=== PATIENT | female | born 1965 | race Caucasian/White ===

== ENCOUNTER → 2017-07-30 | Outpatient (CLI) | payer OTHER ==
[~2017-07-30] VITALS: Ht 167.6 cm; Wt 95.3 kg
[~2017-07-30] MED LIST: VITAMIN B-12500 MCG PO; VITAMIN D1000 UNI1 PO; VITAMIN E400 UNI3 PO; VITAMINC500 PO
--- NOTE | ~2017-07-30 | P ---
[facility] [place] [address] PROCEDURE REPORT Name: CARLOTA CONNOR Room #: REG [facility] P[place]#: [id number] Admission: 07/30/17 Attend Phys: Bon Sood Discharge: Date of : 69 Report #: [id number] THIS REPORT FOR: //name// CC: Bon Dominguez MD DATE OF SERVICE: 07/30/2017 PROCEDURE PERFORMED: Colonoscopy with polypectomies. HISTORY OF PRESENT ILLNESS: The patient is a 52-year-old female who presents today for routine screening colonoscopy. She denies any symptoms. No family history of colon cancer. DESCRIPTION OF PROCEDURE: The risks and benefits of the procedure were explained to the patient, those risks including but not limited to bleeding, perforation, the risk of sedation. She understood these risks and gave informed consent. Sedation was given using propofol per Anesthesia. Next, a digital rectal exam was initially performed, which was normal. Next, using a standard Fujinon colonoscope, the scope was placed in the patient's anus and advanced under direct vision to the cecum. The overall prep was excellent. The cecum and ileocecal valve were normal in appearance. In the ascending colon, there were a total of 3 polyps. The smallest was 4 mm and removed by cold forceps. The two larger were 5-6 mm and removed by snare cautery. The transverse and descending colon were normal. A few small scattered diverticula were noted in the sigmoid colon, no evidence of inflammation, otherwise normal. The rectal mucosa was normal. On retroflexion, no abnormalities were noted. The scope was then withdrawn and the procedure terminated. The patient tolerated the procedure well. IMPRESSION: 1. Three small colonic polyps. 2. A few small diverticula in the sigmoid colon. 3. Otherwise, normal colonoscopy. RECOMMENDATIONS: 1. Await biopsy results. 2. If polyps are hyperplastic, repeat colonoscopy in 10 years; if adenomatous polyp, repeat in [address] [address] PROCEDURE REPORT Name: CARLOTA CONNOR Room #: REG [facility]#: [id number] Admission: 07/30/17 Attend Phys: Bon Sood Discharge: Date of : 69 Report #: [id number] Thank you for allowing me to participate in her care. <ELECTRONICALLY SIGNED> By: Bon Blanchard MD 08/01/17 1057 [id number] Bon Blanchard MD /nt
== END | disposition home or self-care (01) ==
LOC: GI 08:05
DX: Z12.11 Encounter for screening for malignant neoplasm of colon (principal); D12.2 Benign neoplasm of ascending colon; K63.5 Polyp of colon; K57.30 Diverticulosis of large intestine without perforation or abscess without bleeding; Z98.890 Other specified postprocedural states; Z88.0 Allergy status to penicillin; Z88.8 Allergy status to other drugs, medicaments and biological substances; Z79.899 Other long term (current) drug therapy
CPT/HCPCS: 62110; 62900